=== PATIENT | male | born 1955 | race Caucasian/White ===

== ENCOUNTER 2017-02-14 09:37 | Inpatient (IN) | payer BC, OTHER ==
[~2017-02-14] VITALS: Ht 182.9 cm; Wt 113.4 kg
[~2017-02-14 09:37] MED LIST: AMLO2.5T50; HYDR-2296; SIMV5TAB53; VALS40TA6
[2017-02-14 09:39] VITALS: BP_SYST 163
[2017-02-14 09:57] LABS: BILIRUBIN,URINE NEGATIVE (NEGATIVE); BLOOD, URINE NEGATIVE (NEGATIVE); CLARITY/URINE CLEAR (CLEAR); COLOR,URINE YELLOW (YELLOW); GLUCOSE,URINE NEGATIVE (NEGATIVE); KETONES,URINE NEGATIVE (NEGATIVE); LEUKOCYTE ESTERASE ,URINE NEGATIVE (NEGATIVE); NITRITE, URINE NEGATIVE (NEGATIVE); PH,URINE 7.5 (5.0-8.0); PROTEIN URINE TRACE (NEGATIVE); UROBILINOGEN,URINE 0.2 (0.2-1.0)
[2017-02-14] MEDS ORDERED: ASPIRIN 81 MG TAB.CHEW PO ONE (10:00)
[2017-02-14] MEDS ORDERED: NITROGLYCERIN 0.4 MG TAB.SUBL SL ONE ×2 (10:00→10:04)
[2017-02-14 10:09] LABS: BASOPHILS % (AUTO) 0.6 % (0.0-2.0); EOSINOPHILS # (AUTO) 0.1 K/uL (0.0-0.4); HEMATOCRIT 39.8 % (36-54); HEMOGLOBIN 13.1 g/dL (14.0-18.0); LYMPHOCYTES # (AUTO) 1.6 K/uL (1.0-5.5); LYMPHOCYTES % (AUTO) 31.5 % (20.5-51.5); MEAN CORPUSCULAR HEMOGLOBIN 29 pg (27-31); MEAN CORPUSCULAR HGB CONC 33 % (32-36); MEAN CORPUSCULAR VOLUME 87 fL (79.0-98.0); MONOCYTES # (AUTO) 0.7 K/uL (0.0-1.0); MONOCYTES % (AUTO) 13.8 % (1.7-9.3); NEUTROPHILS # (AUTO) 2.7 K/uL (1.8-7.7); NEUTROPHILS % (AUTO) 53.1 % (40.0-70.0); PLATELET COUNT (AUTO) 274 K/uL (130-430); RED BLOOD CELL COUNT(AUTO) 4.57 MIL/uL (4.2-6.2); RED CELL DISTRIBUTION WIDTH 13.1 % (9.0-15.0); WHITE BLOOD COUNT (AUTO) 5.1 K/uL (4.8-10.8)
[2017-02-14 10:17] LABS: CALCIUM 8.5 mg/dL (8.4-11.0); CREATININE 1.19 mg/dL (0.55-1.30)
[2017-02-14 10:18] LABS: INR 1.1 (0.80-1.20); PROTHROMBIN TIME 11.6 SECS (9.5-12.5)
[2017-02-14] MEDS ORDERED: MULT PO (10:52)
[2017-02-14] MEDS ORDERED: IBUP-1480 PO (10:52)
[2017-02-14] MEDS ORDERED: ENOXAPARIN SODIUM 40 MG/0.4 ML SYRINGE SUBCUT SCH (11:00)
[2017-02-14] MEDS ORDERED: METOPROLOL TARTRATE 25 MG TABLET PO ONE (11:00)
[2017-02-14] MEDS ORDERED: ASPIRIN 81 MG TABLET(ECOTRIN) PO SCH (11:00)
[2017-02-14 11:44] VITALS: BP_SYST 147
[2017-02-14] MEDS ORDERED: ASPIRIN 325 MG TABLET (ECOTRIN) PO ONE (13:45)
[2017-02-14] MEDS ORDERED: DILTIAZEM HCL 240 MG CAP.SR.24H PO SCH (16:00)
[2017-02-14] MEDS ORDERED: DILTIAZEM HCL 240 MG CAP.SR.24H PO ONE (17:30)
[2017-02-14 19:30] VITALS: BP_SYST 139
[2017-02-14] MEDS ORDERED: VALSARTAN 160 MG TABLET (DIOVAN) PO SCH (21:00)
[2017-02-15] VITALS: BP_SYST 152
[2017-02-15 04:00] VITALS: BP_SYST 135
[2017-02-15] MEDS ORDERED: MORPHINE 2 MG/ML INJ. SYRINGE IVP PRN (05:30)
[2017-02-15] MEDS ORDERED: MORPHINE 4 MG/ML INJ. SYRINGE IVP PRN (05:45)
[2017-02-15] MEDS ORDERED: MULTIVITAMINS TAB 1 TABLET PO SCH (09:00)
[2017-02-15] MEDS ORDERED: ASPIRIN 325 MG TABLET (ECOTRIN) PO SCH (09:00)
== END 2017-02-15 07:45 | disposition left against medical advice (07) | DRG 206 ==
LOC: SED 09:38 → STU 10:57
PROVIDERS: ADMIT Internal Medicine Hospice and Palliative Medicine; ATTEND Internal Medicine Hospice and Palliative Medicine
DX: M94.0 Chondrocostal junction syndrome [Tietze] (principal); F11.20 Opioid dependence, uncomplicated; E78.5 Hyperlipidemia, unspecified; I10 Essential (primary) hypertension; E66.9 Obesity, unspecified; G89.29 Other chronic pain; Z79.899 Other long term (current) drug therapy; Z87.891 Personal history of nicotine dependence; Z68.33 Body mass index [BMI] 33.0-33.9, adult
CPT/HCPCS: 36415; 71010; 80048; 80061; 81003; 83880; 84484; 85025; 85610-TC; 85730-TC; 93005; 93306; 99285; J2270